=== PATIENT | male | born 1965 | race Two or more races ===

== ENCOUNTER 2017-09-26 09:33 | Emergency (ER) | payer OTHER ==
[~2017-09-26] VITALS: Ht 175.3 cm; Wt 72.6 kg
[2017-09-26 10:06] VITALS: BP 139/104
[2017-09-26] MEDS ORDERED: Ketorolac 30mg Inj IM ONE (10:15)
[2017-09-26] MEDS ORDERED: Methocarbamol 750mg tab ORAL ONE (10:15)
[2017-09-26] MEDS ORDERED: HYDROcodone/Acetamin 10/325 tab ORAL ONE (10:15)
--- NOTE | 2017-09-26 10:18 | Emergency Room Report ---
History of Present Illness General Chief Complaint: Pain Source: Patient Present Illness HPI 52-year-old male, history of bipolar disorder, chronic pain, chronic neck pain, presenting with pain. Patient states that he is staying in a mental health facility, he was just transferred there and they did not transfer his medications with him and he has not had his medication since . Complaining of back pain, right-sided lower lumbar pain radiating down to leg. No fever chills. No recent trauma. No weakness or numbness of his extremities. No urinary retention Allergies: Coded Allergies: No Known Allergies (Unverified , 09/26/17) Patient History Past Medical History: see triage record Past Surgical History: none Pertinent Family History: none Reviewed Nursing Documentation: PMH: Agreed; PSxH: Agreed Nursing Documentation-PMH Hx Asthma: Yes Hx Gastrointestinal Problems: Yes - Hep C History Of Psychiatric Problem: Yes - Bipolar Review of Systems All Other Systems: negative except mentioned in HPI Physical Exam Vital Signs Date Time Temp Pulse Resp B/P (MAP) Pulse Ox O2 Delivery O2 Flow Rate FiO2 09/26/17 09:57 98.8 103 16 139/104 96 Room Air 98.8 Sp02 EP Interpretation: reviewed, normal General Appearance: alert, GCS 15, non-toxic, moderate distress Head: normocephalic, atraumatic Eyes: bilateral eye normal inspection, bilateral eye PERRL, bilateral eye EOMI ENT: normal ENT inspection, normal pharynx, normal voice, moist mucus membranes Neck: full range of motion, no bony tend, tender lateral Respiratory: normal inspection, lungs clear, normal breath sounds, no respiratory distress, no retraction, no wheezing, speaking full sentences, chest symmetrical Cardiovascular #1: normal inspection, regular rate, rhythm, no edema, normal capillary refill Cardiovascular #2: 2+ radial (R), 2+ radial (L) Gastrointestinal: normal inspection, non tender, soft, non-distended, no guarding Genitourinary: no CVA tenderness Musculoskeletal: other - Right-sided lower lumbar tenderness, no midline tenderness, full range of motion all extremities, bearing weight on both extremities Neurologic: normal inspection, alert, oriented x3, responsive, motor strength/ tone normal, sensory intact, normal gait, speech normal Psychiatric: normal inspection, judgement/insight normal, memory normal Skin: normal inspection, normal color, no rash, warm/dry, well hydrated, normal turgor Medical Decision Making Diagnostic Impression: Primary Impression: Chronic back pain ER Course 52-year-old male with chronic back pain p/w back pain DDX: Likely musculoskeletal back pain vs. muscular strain vs. sciatica Lumbar fracture is unlikely given patients age, no midline tenderness, no history of trauma, and that patient is ambulatory. Therefore, at this time no imaging is indicated Serious diagnoses such as cord compression, cauda equina is unlikely in this patient given the clinical scenario and abscess of neurological symptoms or findings. Patient appears nontoxic. Plan: Pain control ER course: Patient has remained nontoxic appearing and ambulatory in the ED. Pain improved w/ medications Disposition: Patient will be discharged to home Strict precautions discussed with patient on when to emergently return to the ED which includes severe/worsening back pain, leg weakness/numbness, urinary retention/incontinence, fever or chills, which may indicate severe illness. Patient is to follow up with their PMD within 5 days. Patient agrees with plan. Please note that this Emergency Department Report was dictated using [email or web address] programmer technology software, occasionally this can lead to erroneous entry secondary to interpretation by the dictation equipment. Last Vital Signs Date Time Temp Pulse Resp B/P (MAP) Pulse Ox O2 Delivery O2 Flow Rate FiO2 09/26/17 10:06 98.8 103 16 139/104 96 Room Air 98.8 Disposition: HOME, SELF-CARE Condition: Improved Scripts Oxycodone Hcl Ir* (ROXICODONE IR*) 5 Mg Tablet 5 MG ORAL Q6H PRN for For Pain, #20 TAB 0 Refills Prov: Reza Cornell M.D. 09/26/17 Methocarbamol* (ROBAXIN-750*) 750 Mg Tablet 750 MG PO QID, #28 TAB 0 Refills Prov: Reza Cornell M.D. 09/26/17 Referrals: [facility],REFERRING (PCP) Patient Instructions: Chronic Pain Reza Cornell M.D. Sep 26, 2017 10:18
[2017-09-26] MEDS ORDERED: OXYCODONE HCL5 MG ORAL (10:20)
[2017-09-26] MEDS ORDERED: ROBAXIN-750750 MG PO (10:20)
[2017-09-26] MEDS ORDERED: oxyCODONE 5mg IR tab ORAL ONE (10:30)
[2017-09-26 10:39] VITALS: BP 139/104
== END 2017-09-26 10:41 | disposition home or self-care (01) ==
LOC: EMR 09:55
DX: M54.5 Low back pain (principal); G89.29 Other chronic pain; J45.909 Unspecified asthma, uncomplicated; F31.9 Bipolar disorder, unspecified
CPT/HCPCS: 99284